=== PATIENT | male | born 1965 | race Caucasian/White ===

== ENCOUNTER 2024-12-24 16:05 | Outpatient (CLI) | payer MEDICAID, SELFPAY | END 2024-12-24 16:06 | disposition home or self-care (01) | PROVIDERS: PCP Family Medicine; Visit Provider Family Medicine | DX: Z13.6 Encounter for screening for cardiovascular disorders (principal); Z13.9 Encounter for screening, unspecified; Z12.5 Encounter for screening for malignant neoplasm of prostate | CPT/HCPCS: 80048; 80061; 85025; G0103 ==